=== PATIENT | female | born 1995 | race Caucasian/White ===

== ENCOUNTER 2017-01-05 11:16 | Emergency (ER) | payer MEDICAID ==
[~2017-01-05] VITALS: Ht 162.6 cm; Wt 70.3 kg
[2017-01-05 11:20] VITALS: BP 111/86
== END 2017-01-05 12:50 | disposition home or self-care (01) ==
LOC: ER 11:20
DX: R05 Cough (principal)
CPT/HCPCS: 99283; A4606; Z7610